=== PATIENT | male | born 1985 | race Caucasian/White ===

== ENCOUNTER 2017-09-30 16:36 | Emergency (ER) | payer BC ==
[~2017-09-30] VITALS: Ht 188 cm; Wt 110.0 kg
[2017-09-30 16:39] VITALS: BP 130/84
== END 2017-09-30 20:34 | disposition left against medical advice (07) ==
LOC: ER 16:59
DX: M79.661 Pain in right lower leg (principal); Z53.21 Procedure and treatment not carried out due to patient leaving prior to being seen by health care provider